=== PATIENT | male | born 1970 | race African-American/Black ===

== ENCOUNTER 2021-03-22 14:45 | Inpatient (IN) | payer BC ==
[~2021-03-22] VITALS: Ht 185.4 cm; Wt 129.5 kg
[2021-03-22] MEDS ORDERED: ALBUTEROL SULF8.5 GM INH (15:00)
[2021-03-22] MEDS ORDERED: NORVASC5 MG PO (15:01)
[2021-03-22] MEDS ORDERED: ZYLOPRIM300 MG PO (15:01)
[2021-03-22] MEDS ORDERED: PROTONIX40 MG PO (15:02)
[2021-03-22] MEDS ORDERED: GLUCOPHAGE1000 MG PO (15:02)
[2021-03-22] MEDS ORDERED: PHENERGAN25 M1 PO (15:02)
[2021-03-22] MEDS ORDERED: GLIMEPIRIDE4 MG PO (15:02)
[2021-03-22 15:50] LABS: CALCIUM 8.7 mg/dL (8.5-10.1); CREATININE - SERUM 6.4 mg/dL (0.6-1.3)
[2021-03-22 15:57] LABS: ALBUMIN 2.5 g/dL (3.4-5.0); BILIRUBIN - TOTAL 0.19 mg/dL (0.2-1.3); PROTEIN - SERUM 8.3 g/dL (6.4-8.2)
[2021-03-22 16:20] LABS: EOSINOPHILS 1.8 % (0-7); HEMATOCRIT 33.2 % (42.0-54.0); HEMOGLOBIN 10.9 g/dL (13.5-17.5); LYMPHOCYTES 15.6 % (15-50); MCH 28.5 pg (26.0-34.0); MCHC 32.9 g/dL (31.0-37.0); MCV 86.5 fL (80.0-100.0); MEAN PLATELET VOLUME 8.1 fL (7.4-10.4); MONOCYTES 6.2 % (2-11); NEUTROPHILS 75.4 % (40-80); PLATELET COUNT 499 10x3/uL (130-400); RBC 3.84 10x6/uL (4.20-6.10); RDW 15.7 % (11.5-14.5); WBC 9.2 10x3/uL (4.8-10.8)
[2021-03-22 17:21] LABS: COMPLEMENT C4 40.4 mg/dL (17.4-52.2)
[2021-03-22 18:11] LABS: ERYTHROCYTE SEDIMENTATION RATE 123 mm/hr (0-15)
[2021-03-22 19:45] VITALS: BP 168/93
[2021-03-22 20:37] LABS: BILIRUBIN NEGATIVE (NEGATIVE); KETONE NEGATIVE mg/dL (< 1+); NITRITE NEGATIVE (NEGATIVE); UROBILINOGEN NORMAL mg/dL (< 2); WHITE CELLS - URINE 1 HPF (0-1)
[2021-03-22 21:00] VITALS: BP 158/88
[2021-03-22 23:45] VITALS: BP 195/114
[2021-03-23 00:26] VITALS: BP 133/79
[2021-03-23 05:14] VITALS: BP 146/85
--- NOTE | 2021-03-23 07:10 | NUR ---
Lying in bed, awake/alert/oriented, T/R self af kennedy, cont of B/B with BRPs per self ad kennedy, denies pain/other discomfort at this time, no s/s of acute distress observed.
[2021-03-23 09:00] VITALS: BP 136/65
[2021-03-23 09:41] LABS: BASOPHILS 1.3 % (0-2); EOSINOPHILS 3.5 % (0-7); HEMATOCRIT 33.1 % (42.0-54.0); HEMOGLOBIN 10.6 g/dL (13.5-17.5); LYMPHOCYTES 20.6 % (15-50); MCH 28.2 pg (26.0-34.0); MCHC 32.2 g/dL (31.0-37.0); MCV 87.8 fL (80.0-100.0); MEAN PLATELET VOLUME 8.1 fL (7.4-10.4); NEUTROPHILS 66.6 % (40-80); PLATELET COUNT 467 10x3/uL (130-400); RBC 3.77 10x6/uL (4.20-6.10); RDW 15.3 % (11.5-14.5); WBC 7.8 10x3/uL (4.8-10.8)
[2021-03-23 10:11] LABS: ALBUMIN 2.4 g/dL (3.4-5.0); BILIRUBIN - DIRECT 0.07 mg/dL (0.00-0.30); BILIRUBIN - INDIRECT 0.13 mg/dL (0.00-1.00); BILIRUBIN - TOTAL 0.2 mg/dL (0.2-1.3); CALCIUM 8.7 mg/dL (8.5-10.1); CARBON DIOXIDE 22.9 mmol/L (21.0-32.0); CHOL - HDL RATIO 7.8 ratio (2.3-4.9); CREATININE - SERUM 6.2 mg/dL (0.6-1.3); LDL-HDL RATIO 5.8 ratio (1.5-3.5); PHOSPHOROUS 5.2 mg/dL (2.5-4.9); PROTEIN - SERUM 7.2 g/dL (6.4-8.2); THYROID STIMULATING HORMONE 1.62 uIU/mL (0.36-3.74)
[2021-03-23 10:12] LABS: POTASSIUM - SERUM 5.9 mmol/L (3.5-5.1)
[2021-03-23] MEDS ORDERED: TOPROL XL50 MG PO (10:33)
[2021-03-23] MEDS ORDERED: PEPCID PO (10:33)
--- NOTE | 2021-03-23 13:10 | NUR ---
Provided written/verbal discharge instructions/education to which pt stated understanding, discontinued IV access/cardiac telemetry monitoring, no s/s of acute distress observed.
--- NOTE | 2021-03-23 13:20 | NUR ---
DC'd home to self care in stable condition, no s/s of acute distress observed,.
[2021-03-23 13:32] VITALS: BP 155/94; Ht 185.4 cm; Wt 129.5 kg
--- NOTE | 2021-03-23 13:42 | MORECARE ---
CASE MANAGEMENT DISCHARGE SUMMARY PATIENT: MEMO WYNN UNIT: [id number] ADM DATE: 03/22/21 AGE: 51 : 74 SEX: M ROOM/BED: D.1382 AUTHOR: EZEKIEL,DOC PHYSICIAN: REFERRING PHYSICIAN: JOCELYN SOTO MD DATE OF SERVICE: 03/23/21 Case Management Discharge Planning Summary COMMENTS ENTERED DATE: 03/23/21 13:34 CT COMMENT TYPE: Discharge Planning REVIEWER: Rosamaria Martin CM met with patient to complete discharge planning assessment and offer availability of needed services. Patient states that he lives independently at home with his spouse prior to admission. Pt verified that home environment is safe and has electricity and running water. Patient denies need for transportation and state that they have funds for services and medications if needed. PCP is Dr. Delgado and patient uses [email or web address]. CM offered and discussed home health, rehab services, and need for any medical equipment. Patient did not express need for offered services at this time. Transportation home will be provided by [facility] ([phone]). DCP REVIEW SUMMARY ANTICIPATED D/C DATE: 03/23/2021 EXPECTED LOS : 1 CASE STATUS: DCP Initiated INITIAL REVIEW: 03/22/2021 INITIAL REVIEWER: Rosamaria Martin FINAL DISCHARGE DISPOSITION: 01 : Home or Self Care (Routine Discharge) FINAL REVIEWER: FINAL REVIEW DATE: [facility] Focus Questions & Answers QUESTION: ANSWER : PATIENT: MEMO WYNN ENCOUNTER: [id number] MEDICAL RECORD#: [id number] ADMISSION DATE: 03/22/2021 DISCHARGE DATE: ATTENDING MD: JOCELNY CHENG : AGE: 51 MARITAL STATUS: M DC PLAN ID: [id number] FACILITY: [facility] PRINTED ON: 03/23/21 13:42 CT All edits/amendments must be made on the electronic document DICTATION DATE: 03/23/21 134 GRINDER SET UP OPERATOR INTERNAL: NETTE 03/23/21 1341 RPT#: [id number] DC DATE: STATUS: ADM IN [facility] [address] [place] [address] END OF REPORT
--- NOTE | 2021-03-23 14:06 | MORECARE ---
CASE MANAGEMENT DISCHARGE SUMMARY PATIENT: MEMO WYNN UNIT: [id number] ADM DATE: 03/22/21 AGE: 51 : 74 SEX: M ROOM/BED: D.0477 AUTHOR: EZEKIEL,DOC PHYSICIAN: REFERRING PHYSICIAN: JOCELYN SOTO MD DATE OF SERVICE: 03/23/21 Case Management Discharge Planning Summary COMMENTS ENTERED DATE: 03/23/21 13:34 CT COMMENT TYPE: Discharge Planning REVIEWER: Rosamaria Martin CM met with patient to complete discharge planning assessment and offer availability of needed services. Patient states that he lives independently at home with his spouse prior to admission. Pt verified that home environment is safe and has electricity and running water. Patient denies need for transportation and state that they have funds for services and medications if needed. PCP is Dr. Delgado and patient uses [email or web address]. CM offered and discussed home health, rehab services, and need for any medical equipment. Patient did not express need for offered services at this time. Transportation home will be provided by [facility] ([phone]). DCP REVIEW SUMMARY ANTICIPATED D/C DATE: 03/23/2021 EXPECTED LOS : 1 CASE STATUS: DCP Initiated INITIAL REVIEW: 03/22/2021 INITIAL REVIEWER: Rosamaria Martin FINAL DISCHARGE DISPOSITION: 01 : Home or Self Care (Routine Discharge) FINAL REVIEWER: FINAL REVIEW DATE: [facility] Focus Questions & Answers QUESTION: ANSWER : PATIENT: MEMO WYNN ENCOUNTER: [id number] MEDICAL RECORD#: [id number] ADMISSION DATE: 03/22/2021 DISCHARGE DATE: 03/23/2021 ATTENDING MD: JOCELYN CHENG : AGE: 51 MARITAL STATUS: M DC PLAN ID: [id number] FACILITY: [facility] PRINTED ON: 03/23/21 14:06 CT All edits/amendments must be made on the electronic document DICTATION DATE: 03/23/211405 ADMINISTRATIVE JOB TITLES: NETTE 03/23/21 140 RPT#: [id number] DC DATE:03/23/21 STATUS: DIS IN [facility] [address] [place] [address] END OF REPORT
--- NOTE | 2021-03-24 07:59 | MORECARE ---
CASE MANAGEMENT DISCHARGE SUMMARY PATIENT: MEMO WYNN UNIT: [id number] ADM DATE: 03/22/21 AGE: 51 : 74 SEX: M ROOM/BED: D.2132 AUTHOR: EZEKIEL,DOC PHYSICIAN: REFERRING PHYSICIAN: JOCELYN SOTO MD DATE OF SERVICE: 03/24/21 Case Management Discharge Planning Summary COMMENTS ENTERED DATE: 03/23/21 13:34 CT COMMENT TYPE: Discharge Planning REVIEWER: Rosamaria Martin CM met with patient to complete discharge planning assessment and offer availability of needed services. Patient states that he lives independently at home with his spouse prior to admission. Pt verified that home environment is safe and has electricity and running water. Patient denies need for transportation and state that they have funds for services and medications if needed. PCP is Dr. Deglado and patient uses [facility]. CM offered and discussed home health, rehab services, and need for any medical equipment. Patient did not express need for offered services at this time. Transportation home will be provided by [facility] ([phone]). DCP REVIEW SUMMARY ANTICIPATED D/C DATE: 03/23/2021 EXPECTED LOS : 1 CASE STATUS: DCP Initiated INITIAL REVIEW: 03/22/2021 INITIAL REVIEWER: Rosamaria Martin FINAL DISCHARGE DISPOSITION: 01 : Home or Self Care (Routine Discharge) FINAL REVIEWER: FINAL REVIEW DATE: [facility] Focus Questions & Answers QUESTION: ANSWER : PATIENT: MEMO WYNN ENCOUNTER: [id number] MEDICAL RECORD#: [id number] ADMISSION DATE: 03/22/2021 DISCHARGE DATE: 03/23/2021 ATTENDING MD: JOCELYN CHENG : AGE: 51 MARITAL STATUS: M DC PLAN ID: [id number] FACILITY: [facility] PRINTED ON: 03/24/21 7:59 CT All edits/amendments must be made on the electronic document DICTATION DATE: 03/24/21758 CLERICAL MANAGER: NETTE 03/24/21 0759 RPT#: [id number] DC DATE:03/23/21 STATUS: DIS IN [facility] [address] [place] [address] END OF REPORT
[2021-03-24 10:13] LABS: HEPATITIS C ANTIBODY <0.1 S/CO RAT (0.0-0.9)
== END 2021-03-23 13:20 | disposition home or self-care (01) | DRG 684 ==
LOC: D.ER 14:45 → OBSVTIME 18:00 → D.EDHOLD 18:00 → D.M2 20:40
PROVIDERS: Family Medicine; ADMIT Internal Medicine Nephrology; ATTEND Internal Medicine Nephrology
DX: N17.9 Acute kidney failure, unspecified (principal); E11.9 Type 2 diabetes mellitus without complications; E87.5 Hyperkalemia; I16.0 Hypertensive urgency